=== PATIENT | female | born 1965 | race Caucasian/White ===

== ENCOUNTER → 2023-06-05 06:43 | Outpatient (REF) | payer BC, SELFPAY | LOC: WDC 06:43 | PROVIDERS: ATTENDING PHYSICIAN Physician Assistant | DX: Z12.31 Encounter for screening mammogram for malignant neoplasm of breast (principal) | CPT/HCPCS: 77063; 77067 ==

== ENCOUNTER → 2024-06-08 06:39 | Outpatient (REF) | payer BC, SELFPAY | LOC: WDC 06:39 | PROVIDERS: ATTENDING PHYSICIAN Physician Assistant | DX: Z12.31 Encounter for screening mammogram for malignant neoplasm of breast (principal) | CPT/HCPCS: 77063; 77067 ==

== ENCOUNTER 2025-01-09 16:11 | Emergency (ER) | payer BC, SELFPAY ==
[2025-01-09 16:23] VITALS: BP 153/108
[2025-01-09 19:22] VITALS: BMI 21.3
--- NOTE | 2025-01-09 19:37 | ED.GENMED ---
History of Present Illness
General
Chief Complaint: Musculo-Skeletal Complaint
Source: patient
Exam Limitations: none
Time Seen by Provider: 01/09/25 19:04
Nursing documentation reviewed up to this point in time: agreed with
History of Present Illness
History of Present Illness:
Patient is a 59-year-old female who presents to the ER complaining of pain to the left hip. She is currently being treated by orthopedics Dr. Solis for superior and inferior pubic rami fractures on the right which was noticed by MRI in November.
For the past several days however she has now had left groin/hip pain without fall.
She is scheduled to see Dr. Solis again on Friday.
Phy Exam
General Physical Exam
General Presentation: no apparent distress
General age: appears stated age
General Skin: warm and dry
General Habitus: normal
General Mental: alert
General Hydration: appears well hydrated
Neurological Exam
Neurological Exam: alert and oriented x3
Musculoskeletal Exam
Musculoskeletal Exam: full ROM and other (full rom to left hip however mild discomfort with range of motion )
Skin Exam
Skin Exam: normal color and warm/dry
Psychiatric Exam
Psychiatric Exam: normal mood/affect
Course
Orders/Labs/Results
Orders:
Orders
01/09/25 16:27
Hips, Bilat 5 view W/AP Pelvis [CR Hips JOSE w/wo Pel Min 5 Vw*] Urgent
Comment:
Reason For Exam: pain BL hips
Include a pelvis x-ray?: Yes
01/09/25 19:37
Acetaminophen [Tylenol] 1,000 mg PO NOW STA
Ketorolac [Toradol] 30 mg IM NOW STA
Vital Signs
Initial and Last Documented VS:
Initial Vital Signs
Temp Pulse Resp BP Pulse Ox
98.1 F 105 20 153/108 98
01/09/25 16:23 01/09/25 16:23 01/09/25 16:23 01/09/25 16:23 01/09/25 16:23
Last Documented Vital Signs
Temp Pulse Resp BP Pulse Ox
98.1 F 86 16 148/80 97
01/09/25 16:23 01/09/25 20:51 01/09/25 20:51 01/09/25 20:51 01/09/25 20:51
MDM/Problems Addressed
Differential Diagnosis Includes:
Not limited to stress fracture hip injury
MDM/Problems Addressed:
Patient is a 59-year-old female who is currently being treated for right superior and inferior pubic rami fracture by orthopedics(atraumatic) however recently complained of left hip pain with no injury. X-rays show a subacute fracture of the right
inferior pubic ramus. She has an appointment with orthopedics on Friday and even has a prescription for physical therapy for her right pubic rami fracture. No recent trauma patient was given IM Toradol feeling better able to get around with a
walker discussed resting is much as possible until seen by Ortho. She does have a walker at home. No other injuries. Patient is set to get a bone scan in the next week as well.
*Radiology
Radiology exam reviewed: radiology read reviewed
*Pulse Oximetry
SaO2: 98
Oxygen Mode of Delivery: Room air
Patient hypoxic: no
*Critical Care Note
Total Time (30-74mins, 75-104mins- exclusive of procedures): Not Applicable
ED Attending Note
-
Portions of this chart may have been created with voice recognition software.� Occasional wrong word or��sound alike� substitutions may have occurred due to the inherent limitations of voice recognition software.
Discharge Plan
Departure
Patient Disposition: Home (Routine Discharge)
Date of Disposition: 01/09/25
Time of Disposition: 21:10
Patient with high blood pressure during this ER visit?: Yes
Condition: Fair
Covid-19: Not Applicable
Discharge Problem:
Fracture of inferior pubic ramus
Instructions: Pelvic fracture, BLOOD PRESSURE
Referrals:
Alejandra Dela Cruz PA-C [Family Provider, Internal Medicine]
Mio Solis MD [Active, Orthopedics]
Activity Restrictions/Additional Instructions:
As discussed continue to alternate between ibuprofen and Tylenol rest until seen and eval by orthopedics as scheduled return if any worsening of symptoms.
Interventions
Interventions:
*Risk Screen - Suicide Last Done: 01/09/25 16:23
*General Assessment Last Done: 01/09/25 16:23
*Neglect/Abuse Screening Last Done: 01/09/25 19:22
*ED- Fall Risk Assessment Last Done: 01/09/25 19:22
*ED COVID-19 Vaccine History Last Done: 01/09/25 19:22
*ED Influenza Vaccine History Last Done: 01/09/25 19:22
ED-Musculoskeletal Assessment Last Done: 01/09/25 19:22
Discharge Date and Time
Print Language: MONGOLIAN
[2025-01-09] MEDS: TORADOL 30 MG IM (20:02)
[2025-01-09] MEDS: TYLENOL 1000 MG PO (20:02)
[2025-01-09 20:51] VITALS: BP 148/80
== END 2025-01-09 21:17 | disposition home or self-care (01) ==
LOC: EMR 16:11
PROVIDERS: EMERGENCY PHYSICIAN Student in an Organized Health Care Education/Training Program; FAMILY PHYSICIAN Physician Assistant
DX: M84.454A Pathological fracture, pelvis, initial encounter for fracture (principal); R03.0 Elevated blood-pressure reading, without diagnosis of hypertension
CPT/HCPCS: 99284; 96372; 73523

== ENCOUNTER → 2025-01-13 07:06 | Outpatient (REF) | payer BC, SELFPAY | LOC: HWRAD 07:06 | PROVIDERS: ATTENDING PHYSICIAN Physician Assistant | DX: M84.350S Stress fracture, pelvis, sequela (principal) | CPT/HCPCS: 77080 ==

== ENCOUNTER → 2025-01-21 08:23 | Outpatient (REF) | payer BC, SELFPAY | LOC: PAVMRI 08:23 | PROVIDERS: ATTENDING PHYSICIAN Orthopaedic Surgery; FAMILY PHYSICIAN Physician Assistant | DX: M54.50 Low back pain, unspecified (principal) | CPT/HCPCS: 72148 ==

== ENCOUNTER → 2025-02-27 09:49 | Outpatient (REF) | payer BC, SELFPAY | LOC: MRI 3T 09:49 | PROVIDERS: ATTENDING PHYSICIAN Student in an Organized Health Care Education/Training Program; FAMILY PHYSICIAN Physician Assistant | DX: M79.662 Pain in left lower leg (principal) | CPT/HCPCS: 73718 ==

== ENCOUNTER 2025-03-07 09:49 | Outpatient (RCR) | payer BC, SELFPAY | END 2025-03-07 23:59 | disposition home or self-care (01) | LOC: RPT 09:49 | PROVIDERS: ATTENDING PHYSICIAN Physician Assistant; FAMILY PHYSICIAN Physician Assistant | DX: M54.16 Radiculopathy, lumbar region (principal); M51.26 Other intervertebral disc displacement, lumbar region; M47.816 Spondylosis without myelopathy or radiculopathy, lumbar region; M81.0 Age-related osteoporosis without current pathological fracture; Z73.6 Limitation of activities due to disability; R26.89 Other abnormalities of gait and mobility | CPT/HCPCS: 97110; 97112; 97162; 97530 ==